=== PATIENT | female | born 1985 | race Caucasian/White ===

== ENCOUNTER → 2016-08-28 | Outpatient (CLI) | payer OTHER ==
[2016-08-28 12:06] LABS: BASO % 0.6 %; BASO ABS # 0.05 K/uL (0-0.2); COMPLETE YES; EOS % 2.4 %; HEMATOCRIT 35.6 % (37-47); IG% 0.1 %; LYMPH % 27.3 %; LYMPH ABS # 2.19 K/uL (1.2-3.4); MEAN CELL VOLUME 90.1 fL (80-100); MEAN CORPUSCULAR HEMOGLOBIN 31.4 pg (25-34); MEAN CORPUSCULAR HGB CONC 34.8 g/dl (32-36); MEAN PLATELET VOLUME 9.8 fL (7.4-10.4); MONO % 6.2 %; NEUT % 63.4 %; PLATELET COUNT 279 K/uL (130-400); RED BLOOD COUNT 3.95 M/uL (4.2-5.4); WHITE BLOOD COUNT 8.03 K/uL (4.8-10.8)
[2016-08-31 01:04] LABS: CHLAMYDIA TRACH RNA*** NOT DETECTED (NOT DETECTED); GC (NEIS GONORRHOEAE)RNA** NOT DETECTED (NOT DETECTED)
== END | disposition home or self-care (01) ==
LOC: C.LAB1850 10:28
PROVIDERS: ATTEND Obstetrics & Gynecology
DX: O09.299 Supervision of pregnancy with other poor reproductive or obstetric history, unspecified trimester (principal); Z3A.00 Weeks of gestation of pregnancy not specified

== ENCOUNTER 2016-09-23 19:49 | Emergency (ER) | payer OTHER ==
[~2016-09-23] VITALS: Ht 152.4 cm; Wt 55.1 kg
[2016-09-23 19:51] VITALS: Ht 152.4 cm; Wt 55.1 kg
[2016-09-23 20:31] LABS: BASO % 0.4 %; BASO ABS # 0.03 K/uL (0-0.2); COMPLETE YES; EOS % 4.1 %; HEMATOCRIT 34.2 % (37-47); IG% 0.1 %; LYMPH % 28.8 %; MEAN CELL VOLUME 89.8 fL (80-100); MEAN CORPUSCULAR HEMOGLOBIN 32.5 pg (25-34); MEAN CORPUSCULAR HGB CONC 36.3 g/dl (32-36); MEAN PLATELET VOLUME 9.4 fL (7.4-10.4); MONO % 5.9 %; NEUT % 60.7 %; PLATELET COUNT 270 K/uL (130-400); RED BLOOD COUNT 3.81 M/uL (4.2-5.4); WHITE BLOOD COUNT 8.34 K/uL (4.8-10.8)
[2016-09-23 20:32] VITALS: O2SAT 99
[2016-09-23 20:41] LABS: INR 0.9 (0.9-1.1); PROTHROMBIN TIME (PATIENT) 9.4 SECONDS (9.0-12.0)
[2016-09-23 20:42] LABS: URINE APPEARANCE CLEAR (CLEAR); URINE BILIRUBIN NEG (NEG); URINE COLOR DK YELLOW; URINE NITRITE NEG (NEG); URINE PH 6.5 (4.5-7.5); URINE SPECIFIC GRAVITY 1.031 (1.000-1.030); UROBILINOGEN NEG (NEG)
[2016-09-23 20:48] LABS: BUN/CREATININE RATIO 11.6 (10-20); CALCIUM 8.5 mg/dl (8.5-10.1); CREATININE 0.58 mg/dl (0.60-1.20); POTASSIUM 3.6 mmol/L (3.5-5.1)
[2016-09-23 20:50] LABS: MANUAL MICROSCOPIC REQUIRED? NO; REVIEW REQ? NO
[2016-09-23 20:51] LABS: ALB/GLOB RATIO 0.9 (0.9-2)
[2016-09-23 20:52] LABS: PREG INTERNAL NEGATIVE QC NEG CLEAR BACKGROUND; PREG INTERNAL POSITIVE QC POS CONTROL LINE
--- NOTE | 2016-09-23 21:20 | DIAGNOSTIC IMAGING REPORT ---
Limited ultrasound LIMITED (US) CLINICAL HISTORY: 12 wks vag bleeding bleeding TECHNIQUE: Ultrasound COMPARISON STUDY: None FINDINGS: Single, viable intrauterine . Estimated gestational age is 12 weeks. heart rate is 1 59 bpm. Maternal cervix is closed. Normal vascular flow to the ovaries is seen in the right. Left ovary is not well seen possibly due to overlying bowel content. IMPRESSION: Single, viable intrauterine estimated at 12 weeks gestational age Electronically signed by: Brody Billy M.D. 09/23/2016 9:18 PM Dictated Date/Time: 09/23/2016 9:17 PM
[2016-09-23 21:50] VITALS: BP 126/80; PULSE 80; TEMP 36.9; O2SAT 100
--- NOTE | 2016-09-23 22:30 | EMERGENCY ROOM VISIT NOTE ---
History Report prepared by Sergeiibjeffry: Ken Le Under the Supervision of: Praneeth McnealO. First contact with patient: 19:54 Chief Complaint: ED VAG BLEEDING Stated Complaint: 12 WEEKS , BLOODY DISCHARGE History of Present Illness The patient is a 31 year old female who presents to the Emergency Room with complaints of constant vaginal bleeding beginning today. She is 11 weeks . She states that she noticed some "pink discharge" today from her vagina. The patient notes that she miscarried about a year ago. She has not had any successful births. She also complains of constipation and fatigue. She notes that the had an IUI last year and that her and her underwent some fertility treatments. She states that the current occurred without fertility treatments after her had two varicoceles removed. The patient denies any recent trauma. She denies any recent sexual intercourse. No abdominal pain. Pt denies headache, change in vision, fevers, chest pain, shortness of breath, nausea, vomiting, diarrhea, pain with urination, and melena. The patient had a vaginal ultrasound at 7 and 8 weeks which appeared normal. Source of History: patient Onset: Today Position: other (vagina) Quality: other (bleeding) Timing: constant Associated Symptoms: + fatigue, No SOB, No abdominal pain, No chest pain, No chills, No diarrhea, No fevers, No nausea, No urinary symptoms, No vomiting Note: The patient also complains of constipation. Review of Systems See HPI for pertinent positives & negatives. A total of 10 systems reviewed and were otherwise negative. Past Medical & Surgical Medical Problems: (1) No Known Active Medical Problems Family History No pertinent family history stated. Social History Smoking Status: Never Smoker Marital Status: Housing Status: lives with significant other Allergies Uncoded Allergies: N (Allergy, Unknown, 06/19/02) NKA (Allergy, Unknown, 06/19/02) NKDA (Allergy, Unknown, 06/19/02) Physical Exam Vital Signs Date Time Temp Pulse Resp B/P Pulse Ox O2 Delivery O2 Flow Rate FiO2 09/23/16 21:50 36.9 80 18 126/80 100 09/23/16 21:35 80 18 126/80 100 Room Air 09/23/16 20:32 99 Room Air 09/23/16 19:51 36.9 81 18 148/94 99 Room Air Physical Exam GENERAL: Sitting up in bed, tearful, alert, well appearing, well nourished, no distress, non-toxic EYE EXAM: normal conjunctiva OROPHARYNX: no exudate, no erythema, lips, buccal mucosa, and tongue normal and mucous membranes are moist NECK: supple, no nuchal rigidity, no adenopathy, non-tender LUNGS: Clear to auscultation. Normal chest wall mechanics HEART: no murmurs, S1 normal and S2 normal ABDOMEN: abdomen soft, non-tender, normo-active bowel sounds, no masses, no rebound or guarding. BACK: Back is symmetrical on inspection and there is no deformity, no midline tenderness, no CVA tenderness. SKIN: no rashes and no bruising. Tattoos present. UPPER EXTREMITIES: upper extremities are grossly normal. LOWER EXTREMITIES: No pitting edema. NEURO EXAM: Normal sensorium, cranial nerves II-XII grossly intact, normal speech, no gross weakness of arms, no gross weakness of legs. Medical Decision & Procedures ER Provider Diagnostic Interpretation: Radiology results as stated below per my review and the radiologist's interpretation: ' Limited ultrasound LIMITED (US) FINDINGS: Single, viable intrauterine . Estimated gestational age is 12 weeks. heart rate is 1 59 bpm. Maternal cervix is closed. Normal vascular flow to the ovaries is seen in the right. Left ovary is not well seen possibly due to overlying bowel content. IMPRESSION: Single, viable intrauterine estimated at 12 weeks gestational age Electronically signed by: Brody Billy M.D. Laboratory Results 09/23/16 20:20 Red Blood Count 3.81, Mean Corpuscular Volume 89.8, Mean Corpuscular Hemoglobin 32.5, Mean Corpuscular Hemoglobin Concent 36.3, Mean Platelet Volume 9.4, Neutrophils (%) (Auto) 60.7, Lymphocytes (%) (Auto) 28.8, Monocytes (%) (Auto) 5.9, Eosinophils (%) (Auto) 4.1, Basophils (%) (Auto) 0.4, Neutrophils # (Auto) 5.07, Lymphocytes # (Auto) 2.40, Monocytes # (Auto) 0.49, Eosinophils # (Auto) 0.34, Basophils # (Auto) 0.03 09/23/16 20:20 Test 09/23/16 20:20 White Blood Count 8.34 K/uL (4.8-10.8) Red Blood Count 3.81 M/uL (4.2-5.4) Hemoglobin 12.4 g/dL (12.0-16.0) Hematocrit 34.2 % (37-47) Mean Corpuscular Volume 89.8 fL (80-100) Mean Corpuscular Hemoglobin 32.5 pg (25-34) Mean Corpuscular Hemoglobin Concent 36.3 g/dl (32-36) Platelet Count 270 K/uL (130-400) Mean Platelet Volume 9.4 fL (7.4-10.4) Neutrophils (%) (Auto) 60.7 % Lymphocytes (%) (Auto) 28.8 % Monocytes (%) (Auto) 5.9 % Eosinophils (%) (Auto) 4.1 % Basophils (%) (Auto) 0.4 % Neutrophils # (Auto) 5.07 K/uL (1.4-6.5) Lymphocytes # (Auto) 2.40 K/uL (1.2-3.4) Monocytes # (Auto) 0.49 K/uL (0.11-0.59) Eosinophils # (Auto) 0.34 K/uL (0-0.5) Basophils # (Auto) 0.03 K/uL (0-0.2) RDW Standard Deviation 40.7 fL (36.4-46.3) RDW Coefficient of Variation 12.6 % (11.5-14.5) Immature Granulocyte % (Auto) 0.1 % Immature Granulocyte # (Auto) 0.01 K/uL (0.00-0.02) Prothrombin Time 9.4 SECONDS (9.0-12.0) Prothromb Time International Ratio 0.9 (0.9-1.1) Activated Partial Thromboplast Time 25.2 SECONDS (21.0-31.0) Partial Thromboplastin Ratio 1.0 Urine Color DK YELLOW Urine Appearance CLEAR (CLEAR) Urine pH 6.5 (4.5-7.5) Urine Specific Eva 1.031 (1.000-1.030) Urine Protein NEG (NEG) Urine Glucose (UA) NEG (NEG) Urine Ketones TRACE (NEG) Urine Occult Blood NEG (NEG) Urine Nitrite NEG (NEG) Urine Bilirubin NEG (NEG) Urine Urobilinogen NEG (NEG) Urine Leukocyte Esterase NEG (NEG) Urine Test POS (NEG) Anion Gap 8.0 mmol/L (3-11) Est Creatinine Clear Calc Drug Dose 111.5 ml/min Estimated GFR () 144.4 Estimated GFR (Non- 124.6 BUN/Creatinine Ratio 11.6 (10-20) Calcium Level 8.5 mg/dl (8.5-10.1) Total Bilirubin 0.2 mg/dl (0.2-1) Aspartate Amino Transf (AST/SGOT) 7 U/L (15-37) Alanine Aminotransferase (ALT/SGPT) 15 U/L (12-78) Alkaline Phosphatase 59 U/L (45-117) Total Protein 7.2 gm/dl (6.4-8.2) Albumin 3.5 gm/dl (3.4-5.0) Globulin 3.7 gm/dl (2.5-4.0) Albumin/Globulin Ratio 0.9 (0.9-2) Human Chorionic Gonadotropin, Qual POS (NEG) Human Chorionic Gonadotropin, Quant 15878 mIU/mL Laboratory results per my review. ED Course ED COURSE: Vital signs were reviewed and appeared normal The patients medical record was reviewed The above diagnostic studies were performed and reviewed. ED treatments and interventions as stated above. 2005: The patient was evaluated in room B10. A complete history and physical examination was performed. 2014: Bedside ultrasound shows an IUP moving all extremities. Difficult to determine a heart rate. 2131: Upon reevaluation, the patient is resting comfortably. I discussed my findings with the patient and she understands and agrees with the treatment plan. Based on the patients age, coexisting illnesses, exam and lab findings the decision to treat as an outpatient was made. The patient remained stable while under my care. The patient appeared well at the time of discharge. Medical Decision Differential diagnosis includes etiologies such as ectopic , dysfunction uterine bleeding, bleeding dyscrasia, trauma, infection, as well as others were entertained. Patient is a 31-year-old female who presents the ER for a slight red tinge within her vaginal discharge. There is no active bleeding. She is no abdominal pain. Hemoglobin stable at 12. CBC along with BMP, LFTs, bilirubin is unremarkable. HCG is 83,000. UA was negative. INR is normal. Bedside ultrasound shows IUP with large amount of movement. Formal ultrasound shows IUP with heart rate of 150s. Patient was discharged to follow-up with [facility] who sent her in. Blood type was O+ and rhogam was given. Discussed with Pt concerning signs and symptoms to watch out for. Pt was instructed to follow up with their PCP and discussed with the patient their option to return to the ED at anytime for persistent or worsening symptoms. The appropriate anticipatory guidance and out-patient management, including indications for return to the emergency department, were explained at length to the patient and understood. Impression Primary Impression: Intrauterine Scribe Attestation The scribe's documentation has been prepared under my direction and personally reviewed by me in its entirety. I confirm that the note above accurately reflects all work, treatment, procedures, and medical decision making performed by me. Departure Information Dispostion Home / Self-Care Referrals Noelle Roman MD (PCP) Forms HOME CARE DOCUMENTATION FORM, IMPORTANT VISIT INFORMATION, WORK / SCHOOL INSTRUCTIONS Patient Instructions Bleeding Early Preg, My [facility] Additional Instructions Please follow up with your primary care doctor with in the next 24 hours and obstetrics within the next 48 hours. Any worsening of your symptoms, please return to the ED immediately. This includes worsening bleeding, passing out, abdominal pain, passing clots, passing tissue, or any other concerning signs or symptoms from your standpoint. Ultrasound shows a normal intrauterine with a heart rate in the 150s.
== END 2016-09-23 21:51 | disposition home or self-care (01) ==
LOC: C.EDB 19:50
DX: Z34.00 Encounter for supervision of normal first pregnancy, unspecified trimester (principal); Z3A.11 11 weeks gestation of pregnancy

== ENCOUNTER → 2016-09-25 | Outpatient (CLI) | payer OTHER ==
[~2016-09-25] MED LIST: EYED; PREN1TAB29
[2016-09-25 12:14] LABS: URINE APPEARANCE CLEAR (CLEAR); URINE BILIRUBIN NEG (NEG); URINE COLOR DK YELLOW; URINE NITRITE NEG (NEG); URINE SPECIFIC GRAVITY 1.027 (1.000-1.030); UROBILINOGEN NEG (NEG)
[2016-09-25 12:37] LABS: MANUAL MICROSCOPIC REQUIRED? NO; REVIEW REQ? NO
== END | disposition home or self-care (01) ==
LOC: C.LABSPEC 11:30
PROVIDERS: ATTEND Obstetrics & Gynecology
DX: O09.299 Supervision of pregnancy with other poor reproductive or obstetric history, unspecified trimester (principal); Z3A.00 Weeks of gestation of pregnancy not specified

== ENCOUNTER → 2016-10-23 | Outpatient (CLI) | payer OTHER ==
[2016-10-23 15:05] LABS: GTGD 50 Grams
== END | disposition home or self-care (01) ==
LOC: C.LAB1850 10:02
PROVIDERS: ATTEND Obstetrics & Gynecology
DX: Z34.01 Encounter for supervision of normal first pregnancy, first trimester (principal)

== ENCOUNTER → 2017-01-18 | Outpatient (CLI) | payer OTHER ==
[2017-01-18 10:49] LABS: GTGD 50 Grams
== END | disposition home or self-care (01) ==
LOC: C.LAB1850 09:04
PROVIDERS: ATTEND Obstetrics & Gynecology
DX: Z34.02 Encounter for supervision of normal first pregnancy, second trimester (principal); Z3A.00 Weeks of gestation of pregnancy not specified

== ENCOUNTER → 2017-01-18 | Outpatient (CLI) | payer OTHER ==
[2017-01-18 11:59] LABS: URINE APPEARANCE CLEAR (CLEAR); URINE BILIRUBIN NEG (NEG); URINE COLOR DK YELLOW; URINE EPITHELIAL CELL AUTO >30 /lpf (0-5); URINE NITRITE NEG (NEG); URINE SPECIFIC GRAVITY 1.024 (1.000-1.030); UROBILINOGEN NEG (NEG)
[2017-01-18 12:18] LABS: MANUAL MICROSCOPIC REQUIRED? NO; REVIEW REQ? NO
== END | disposition home or self-care (01) ==
LOC: C.LABSPEC 11:01
PROVIDERS: ATTEND Obstetrics & Gynecology
DX: Z34.02 Encounter for supervision of normal first pregnancy, second trimester (principal); Z3A.00 Weeks of gestation of pregnancy not specified

== ENCOUNTER 2017-04-13 13:59 | Inpatient (IN) | payer OTHER ==
[~2017-04-13] VITALS: Ht 152.4 cm; Wt 72.7 kg
[2017-04-13 15:02] LABS: HEMATOCRIT 34.5 % (37-47); MEAN CELL VOLUME 95.3 fL (80-100); MEAN CORPUSCULAR HEMOGLOBIN 33.4 pg (25-34); MEAN CORPUSCULAR HGB CONC 35.1 g/dl (32-36); MEAN PLATELET VOLUME 10.5 fL (7.4-10.4); PLATELET COUNT 223 K/uL (130-400); RED BLOOD COUNT 3.62 M/uL (4.2-5.4); WHITE BLOOD COUNT 13.16 K/uL (4.8-10.8)
[2017-04-13] MEDS ORDERED: PREN1TAB29 (15:10)
[2017-04-13] MEDS ORDERED: EYED (15:10)
[2017-04-13 15:12] VITALS: Ht 152.4 cm; Wt 72.7 kg
[2017-04-13] MEDS ORDERED: FENTANYL 2MCG/ML ROPIV 1.25MG/ML 100ML BAG EPI ONE (17:07)
[2017-04-13] MEDS ORDERED: EpHEDrine SULFATE INJ 50 MG/ML AMP ONE (17:07)
[2017-04-13] MEDS ORDERED: BUPIVACAINE 0.25% 30 ML VIAL ONE (17:07)
[2017-04-13] MEDS ORDERED: FENTANYL CITRATE INJ 50 MCG/1 ML 2 ML VIAL ONE (17:07)
[2017-04-13] MEDS: LACTATED RINGER'S 1000ML 1,000 ML IV PRN (17:16)
[2017-04-13] MEDS: LACTATED RINGER'S 1000ML 1,000 ML IV SCH ×2 (17:16→20:24)
[2017-04-13] MEDS ORDERED: NALOXONE HCL INJ 1 MG in SODIUM CHLORIDE 0.9% 1000ML 1,000 ML IV PRN (20:06)
[2017-04-13] MEDS ORDERED: LACTATED RINGER'S 1000ML 500 ML IV PRN (20:06)
[2017-04-13] MEDS ORDERED: ONDANSETRON INJ 2 MG/ML 2 ML VIAL IV PRN (20:15)
[2017-04-13] MEDS ORDERED: EpHEDrine SULFATE INJ 50 MG/ML AMP IV PRN (20:15)
[2017-04-13] MEDS ORDERED: PROMETHAZINE HCL INJ 6.25 MG in SODIUM CHLORIDE 0.9% 50ML 50 ML IV PRN (20:15)
[2017-04-13] MEDS ORDERED: DiphenhydrAMINE HCL 50 MG/ML VIAL IV PRN (20:15)
[2017-04-13] MEDS ORDERED: NALBUPHINE HCL INJ 10 MG/ML AMP IV PRN (20:15)
[2017-04-13] MEDS ORDERED: NALOXONE HCL INJ 0.4 MG/1 ML VIAL/CARP IV PRN (20:15)
[2017-04-13] MEDS ORDERED: OXYTOCIN 30 UNITS/500ML NSS IV ONE (21:56)
[2017-04-13] MEDS: FENTANYL 2MCG/ML ROPIV 1.25MG/ML 100ML BAG EPI PRN (22:56)
[2017-04-13] MEDS ORDERED: ACETAMINOPHEN 500 MG TAB PO ONE ×2 (23:30→23:45)
[2017-04-13] MEDS ORDERED: NURSING VERBAL MED ORDER ONE (23:30)
[2017-04-14] VITALS (9 sets, daily range): BP systolic 117; BP diastolic 72; PULSE 92; TEMP 36.4; O2SAT 91–97
[2017-04-14] MEDS: FENTANYL 2MCG/ML ROPIV 1.25MG/ML 100ML BAG EPI PRN ×3 (01:32→08:29)
[2017-04-14] MEDS ORDERED: LACTATED RINGER'S 1000ML 500 ML IV PRN ×2 (04:10→10:44)
[2017-04-14] MEDS ORDERED: OXYTOCIN 30 UNITS/500ML NSS IV PRN (04:15)
[2017-04-14] MEDS: LACTATED RINGER'S 1000ML 1,000 ML IV SCH (05:14)
[2017-04-14] MEDS ORDERED: CEFAZOLIN IV 2,000 MG in SYRINGE 0 ML IV SCH (08:00)
[2017-04-14] MEDS ORDERED: CEFAZOLIN IV 2,000 MG in DEXTROSE 5% 50ML 50 ML IV SCH (08:00)
[2017-04-14] MEDS ORDERED: CITRIC ACID/SODIUM CITRATE 15 ML UDC ONE (09:07)
[2017-04-14] MEDS: LACTATED RINGER'S 1000ML 1,000 ML IV PRN (09:12)
[2017-04-14] MEDS ORDERED: LACTATED RINGER'S 1000ML 1,000 ML IV SCH ×2 (09:45→10:30)
[2017-04-14] MEDS ORDERED: CITRIC ACID/SODIUM CITRATE 15 ML UDC PO ONE (09:45)
--- NOTE | 2017-04-14 09:55 | HISTORY & PHYSICAL EXAMINATION ---
DATE OF ADMISSION: 04/13/2017 HISTORY OF PRESENT ILLNESS: Dorita presented in labor for Dr. Garcia and I inherited call at 8:30 a.m. At that time, the patient had been fully dilated for approximately 6 hours and had been pushing for some portion of that. heart rate tracing had been tachycardic for some significant period of time as well and was in the 180s. The heart rate did show some episodes of good variability, but again, heart rate tachycardia of 180 at this stage. Since I was just coming on for the shift, I reviewed with the patient her situation in full, summarized to progress in labor and the patient stated she was also exhausted. I felt the exam there was some significant caput of the baby's head. However, I felt that the bony presenting part was at +2 cm. I offered the patient two choices; one was vacuum assistance now or a section. I discussed the vacuum assistance had risks and benefits as did the . HISTORY: This is her first to term. She has had 1 prior miscarriage. She had a echo as well with no apparent defect; however, an echo was recommended . Her due date was April 09, she is 40 weeks and 5 days today. Her group B strep is negative. PAST MEDICAL HISTORY: Reviewing medical history, she is healthy. She had a LEEP in the past procedure. PAST SURGICAL HISTORY: LEEP. MEDICATIONS: . FAMILY HISTORY: Negative. REVIEW OF SYSTEMS: Negative. PHYSICAL EXAMINATION: VITAL SIGNS: Stable. Her temperature is just above 100 degrees at its highest point, but currently is normal. CHEST: Clear. CARDIOVASCULAR: Normal rate and rhythm. No audible murmur. heart rate described as 180. CERVIX: Exam 2 cm. ASSESSMENT: I offered the patient vacuum as it would be a low vacuum and the patient agreed. I did discuss the option of as well and I did feel there was some concern the baby would not come with vacuum.
[2017-04-14] MEDS ORDERED: LIDOCAINE/EPINEPHRINE 2% 1:200,000 20 ML SDV ONE (10:01)
[2017-04-14] MEDS ORDERED: OXYTOCIN INJ 10 UNITS/ML VIAL ONE (10:01)
[2017-04-14] MEDS ORDERED: MORPHINE SULFATE 1MG/1ML 30ML VIAL IV ONE (10:07)
[2017-04-14] MEDS ORDERED: ONDANSETRON INJ 2 MG/ML 2 ML VIAL ONE (10:09)
[2017-04-14] MEDS ORDERED: LANOLIN OINT EXT PRN ×4 (10:30)
[2017-04-14] MEDS ORDERED: PROMETHAZINE HCL INJ 25 MG in SODIUM CHLORIDE 0.9% 50ML 50 ML IV PRN ×2 (10:30)
[2017-04-14] MEDS ORDERED: KETOROLAC TROMETHAMINE 30 MG/ML VIAL IV. PRN ×2 (10:30)
[2017-04-14] MEDS ORDERED: ZOLPIDEM TARTRATE 5 MG TAB PO PRN ×2 (10:30)
[2017-04-14] MEDS ORDERED: DiphenhydrAMINE HCL 50 MG/ML VIAL IV PRN ×3 (10:30→10:45)
[2017-04-14] MEDS ORDERED: MAGNESIUM HYDROXIDE SUSP 30 ML UDC PO PRN ×2 (10:30)
[2017-04-14] MEDS ORDERED: OXYCODONE/ACETAMINOPHEN 5-325 TAB PO PRN ×3 (10:30)
[2017-04-14] MEDS ORDERED: SUPERCREAM 0.870 % 15GM JAR EXT PRN ×2 (10:30)
[2017-04-14] MEDS ORDERED: HYDROCORTISONE ACETATE 25 MG SUPP PR PRN (10:30)
[2017-04-14] MEDS ORDERED: MEPERIDINE HCL 50 MG/ML CARP IV PRN ×4 (10:30)
[2017-04-14] MEDS ORDERED: SENNA 8.6 MG TAB PO PRN ×2 (10:30)
[2017-04-14] MEDS ORDERED: IBUPROFEN 600 MG TAB PO PRN (10:30)
[2017-04-14] MEDS ORDERED: BENZOCAINE 20% AER SPR 82.5 GM CAN EXT PRN ×2 (10:30)
[2017-04-14] MEDS ORDERED: ONDANSETRON INJ 2 MG/ML 2 ML VIAL IV PRN ×3 (10:30→10:45)
--- NOTE | 2017-04-14 10:33 | [facility] Operative Report ---
Operative Report Operative Date Apr 14, 2017. Pre-Operative Diagnosis Tachycardia. Prolonged second stage of labor. Failed trial of vacuum. Maternal exhaustion. Post-Operative Diagnosis same Procedure(s) Performed Caesarean section Surgeon Dr. Jada Pritchett Metal Milling Machine Operator Surgeon(s) Dr. Ladan Zhang Estimated Blood Loss 600 Findings OP position of fetus Specimens A- placenta- exam B- cord blood C- arterial and venous cord gasses Drains Cabrales Anesthesia Epidural Complication(s) None Disposition L&D I attest to the content of the Intraoperative Record and any orders documented therein. Any exceptions are noted below.
[2017-04-14] MEDS ORDERED: SODIUM CHLORIDE 0.9% 1000ML 1,000 ML IV PRN (10:44)
[2017-04-14] MEDS ORDERED: NALOXONE HCL INJ 0.08 MG in SYRINGE 1.8 ML IV PRN (10:44)
[2017-04-14] MEDS ORDERED: NALOXONE HCL INJ 1 MG in SODIUM CHLORIDE 0.9% 1000ML 1,000 ML IV PRN (10:44)
[2017-04-14] MEDS ORDERED: MoRPHine SULFATE 2 MG/ML CARP IV PRN (10:45)
[2017-04-14] MEDS ORDERED: DC INTRASPINAL MORPHINE SCH (10:45)
[2017-04-14] MEDS ORDERED: NALOXONE HCL 0.4 MG/1 ML VIAL/CARP IV PRN (10:45)
[2017-04-14] MEDS ORDERED: MoRPHine SULFATE PF 1 MG/ML 10 ML AMP/VIAL EPI PRN (10:45)
[2017-04-14] MEDS ORDERED: NO NARCOTICS OR SEDATIVES SCH (10:45)
[2017-04-14] MEDS ORDERED: EpHEDrine SULFATE INJ 50 MG/ML AMP IV PRN (10:45)
--- NOTE | 2017-04-14 10:46 | Anesthesiology Progress Note ---
Anesthesia Post Op Note Date & Time Apr 14, 2017 at 10:46 Vital Signs Pain Intensity: 0.0 Notes Mental Status: alert / awake / arousable, participated in evaluation Pt Amnestic to Procedure: Yes Nausea / Vomiting: adequately controlled Pain: adequately controlled Airway Patency, RR, SpO2: stable & adequate BP & HR: stable & adequate Hydration State: stable & adequate Neuraxial Anesthesia: was administered, sensory block is resolving Anesthetic Complications: no major complications apparent
--- NOTE | 2017-04-14 10:46 | Anesthesia Procedure Note ---
Anesthesia Epidural Removal Nt Date & Time Apr 14, 2017 at 10:45 Vital Signs Pain Intensity: 0.0 Notes Mental Status: alert / awake / arousable, participated in evaluation Nausea / Vomiting: adequately controlled Pain: adequately controlled Airway Patency, RR, SpO2: stable & adequate BP & HR: stable & adequate Hydration State: stable & adequate Neuraxial Anesthesia: was administered, sensory block is resolving Anesthetic Complications: no major complications apparent, pt satisfied with anesthetic care Epidural: removed without complications, with tip intact
--- NOTE | 2017-04-14 11:08 | OPERATIVE REPORT ---
DATE OF OPERATION: 04/14/2017 PREOPERATIVE DIAGNOSIS: tachycardia, prolonged second stage of labor, failed trial of vacuum and maternal exhaustion. POSTOPERATIVE DIAGNOSIS: Same. PROCEDURE: Low segment transverse section. SURGEON: Dr. rPitchett. LINER WORKER: Dr. Garcia. ESTIMATED BLOOD LOSS: 600 mL. FINDINGS: OP position of fetus. SPECIMENS: Placenta exam, cord blood and arterial and venous cord gases. DRAINS: Cabrales catheter. ANESTHETIC: Epidural. COMPLICATIONS: None. DISPOSITION: L&D. Dorita had her epidural anesthetic increased. Of note, she did have a trial of vacuum. This was only 2 pulls and there was no movement of the fetus. Another operative note has been dictated. Cabrales catheter had been placed in her bladder and was draining reasonably slightly brownish color urine, leftward tilt. After a time motion analyst out and Ancef within 1 hour of procedure, 2 grams skin was tested with pickups with teeth and found to be adequate for incision. DESCRIPTION OF PROCEDURE: A low transverse incision made with scalpel, dissecting down through subcutaneous fat through the fascia in the midline, splitting the rectus muscles and then entering the peritoneal cavity in a superior location to avoid injuring the bladder. Once in the peritoneal cavity opening enlarged to allow exposure. Bladder retractor placed. The Metzenbaums were used to dissect away the bladder flap further from the low segment and then an incision was made with scalpel. Uterus was fairly thin. I was able to enter after incising the uterus with scalpel, entered bluntly with the coding machine operator's finger and then enlarged the incision with the coding machine operator's finger in the usual fashion. Baby was in direct occiput posterior position and was able to flex the head and elevate the head out of the pelvis and then pressure from the respiratory care assistant allowed delivery of the head. Fluid was clear. No nuchal cord. Mouth suctioned. Baby was delivered by gentle traction. No excessive force used. Live vigorous female . There was some terminal meconium but this was only at the delivery portion of the baby through the incision. Baby was handed to Dr. Ruiz after cord was clamped and cut. Cord gases obtained. Cord blood obtained. IV Pitocin was then started. The placenta was then manually removed. Uterus was exteriorized. Uterus tone increased. I ensured with a moist lap all placenta was removed. On careful examination of the uterus I discovered there were no extensions of the incision. The uterus was then closed in the usual fashion using 0 Vicryl as first locking layer and a second reinforcing 0 Vicryl layer. At this stage, hemostasis was excellent. After generous irrigation and suction of the cul-de-sac region, uterus was placed back in the peritoneal cavity. Bladder flap was also examined and irrigated and suctioned and was hemostatic. The retractors were removed. At this stage fascia was closed with 0 Vicryl, subcutaneous fat irrigated and closed with 3-0 Vicryl and skin closed with 4-0 subcuticular Monocryl. Incision Steri-Strips. Sponge and instrument counts correct. Urine was the same color at the end of the procedure. I attest to the content of the Intraoperative Record and any orders documented therein. Any exception s are noted below.
[2017-04-14] MEDS: KETOROLAC TROMETHAMINE 30 MG/ML VIAL IV. PRN ×2 (11:43→19:52)
[2017-04-14] MEDS ORDERED: SIMETHICONE 80 MG CHEW PO SCH (13:00)
[2017-04-14] MEDS: OXYTOCIN INJ 20 UNITS in LACTATED RINGER'S 1000ML 1,000 ML IV SCH ×2 (15:29→23:22)
[2017-04-14] MEDS: SIMETHICONE 80 MG CHEW PO SCH ×2 (16:33→19:53)
[2017-04-14] MEDS: NALBUPHINE HCL INJ 10 MG/ML AMP IV PRN (18:03)
[2017-04-14] MEDS: DOCUSATE SODIUM 100 MG CAP PO SCH (19:53)
[2017-04-14] MEDS ORDERED: DOCUSATE SODIUM 100 MG CAP PO SCH (20:00)
[2017-04-15] VITALS (10 sets, daily range): BP systolic 114–130; BP diastolic 73–82; PULSE 86–96; TEMP 36.3–36.7; O2SAT 90–99
[2017-04-15] MEDS: KETOROLAC TROMETHAMINE 30 MG/ML VIAL IV. PRN (02:18)
[2017-04-15] MEDS: NALBUPHINE HCL INJ 10 MG/ML AMP IV PRN (03:21)
[2017-04-15 07:14] LABS: BASO % 0.2 %; BASO ABS # 0.03 K/uL (0-0.2); COMPLETE YES; EOS % 1.1 %; HEMATOCRIT 29.4 % (37-47); IG% 0.3 %; LYMPH % 8.4 %; LYMPH ABS # 1.37 K/uL (1.2-3.4); MEAN CELL VOLUME 95.8 fL (80-100); MEAN CORPUSCULAR HEMOGLOBIN 32.2 pg (25-34); MEAN CORPUSCULAR HGB CONC 33.7 g/dl (32-36); MEAN PLATELET VOLUME 9.9 fL (7.4-10.4); MONO % 3.8 %; NEUT % 86.2 %; PLATELET COUNT 174 K/uL (130-400); RED BLOOD COUNT 3.07 M/uL (4.2-5.4); WHITE BLOOD COUNT 16.22 K/uL (4.8-10.8)
[2017-04-15] MEDS: OXYCODONE/ACETAMINOPHEN 5-325 TAB PO PRN ×3 (07:32→17:23)
[2017-04-15] MEDS: SIMETHICONE 80 MG CHEW PO SCH ×4 (07:33→20:29)
[2017-04-15] MEDS: IBUPROFEN 600 MG TAB PO PRN ×3 (07:34→17:23)
[2017-04-15] MEDS: PRENATAL VITAMIN TAB PO SCH (07:34)
[2017-04-15] MEDS: DOCUSATE SODIUM 100 MG CAP PO SCH ×2 (07:34→20:29)
[2017-04-15] MEDS ORDERED: PRENATAL VITAMIN TAB PO SCH (08:00)
--- NOTE | 2017-04-15 08:57 | Progress Note ---
Subjective Apr 15, 2017. Subjective conversation w/ patient, physical exam, lab review Ambulation: ambulating normally Lochia: Moderate Feeding Type: Breast Feeding Objective Vital Signs Date Time Temp Pulse Resp B/P (MAP) Pulse Ox O2 Delivery O2 Flow Rate FiO2 04/15/17 05:30 20 90 04/15/17 04:30 20 93 04/15/17 03:45 36.5 90 20 114/73 (87) 91 Room Air 04/15/17 03:30 20 90 04/15/17 02:30 20 91 04/15/17 01:30 22 90 04/15/17 00:30 22 93 04/15/17 00:30 93 Room Air 04/14/17 23:30 20 91 04/14/17 22:30 16 95 04/14/17 21:35 18 96 04/14/17 20:40 16 96 04/14/17 19:50 14 94 04/14/17 18:40 14 94 04/14/17 17:45 18 94 04/14/17 16:40 16 95 04/14/17 15:40 20 97 04/14/17 15:40 97 Room Air 04/14/17 15:40 36.4 92 20 117/72 (87) 97 Room Air 04/14/17 15:40 94 Room Air Physical Exam General Appearance: WELL-APPEARING Respiratory/Chest: lungs clear Abdomen: non tender Fundus: Firm Incision Description: Clean, Dry & Intact Extremities: no calf tenderness Laboratory Results Last 24 Hours Test 04/15/17 06:56 White Blood Count 16.22 K/uL Red Blood Count 3.07 M/uL Hemoglobin 9.9 g/dL Hematocrit 29.4 % Mean Corpuscular Volume 95.8 fL Mean Corpuscular Hemoglobin 32.2 pg Mean Corpuscular Hemoglobin Concent 33.7 g/dl Platelet Count 174 K/uL Mean Platelet Volume 9.9 fL Neutrophils (%) (Auto) 86.2 % Lymphocytes (%) (Auto) 8.4 % Monocytes (%) (Auto) 3.8 % Eosinophils (%) (Auto) 1.1 % Basophils (%) (Auto) 0.2 % Neutrophils # (Auto) 13.97 K/uL Lymphocytes # (Auto) 1.37 K/uL Monocytes # (Auto) 0.62 K/uL Eosinophils # (Auto) 0.18 K/uL Basophils # (Auto) 0.03 K/uL RDW Standard Deviation 48.2 fL RDW Coefficient of Variation 13.9 % Immature Granulocyte % (Auto) 0.3 % Immature Granulocyte # (Auto) 0.05 K/uL Assessment and Plan Problem List Medical Problems: (1) Intrauterine Status: Acute Post-Op Day#: 1 Continue Routine Care: Discussed Fe when goes home
[2017-04-15] MEDS ORDERED: BISACODYL 5 MG TABEC PO ONE (22:00)
[2017-04-15] MEDS: BISACODYL 5 MG TABEC PO ONE ×2 (22:16→22:22)
[2017-04-16] MEDS: OXYCODONE/ACETAMINOPHEN 5-325 TAB PO PRN ×3 (01:29→16:12)
[2017-04-16] MEDS: IBUPROFEN 600 MG TAB PO PRN ×3 (01:30→16:10)
[2017-04-16 06:40] LABS: HEMATOCRIT 24.9 % (37-47)
--- NOTE | 2017-04-16 07:14 | Progress Note ---
Subjective Apr 16, 2017. Subjective conversation w/ patient, physical exam, chart review, lab review Ambulation: ambulating normally Voiding: no voiding problems Passing Gas: Yes Diet Tolerance: Regular Diet Lochia: Moderate Feeding Type: Breast Feeding Pain: controlled Review of Systems Abdomen: No nausea, No vomiting Female : No dysuria Objective Vital Signs Date Time Temp Pulse Resp B/P (MAP) Pulse Ox O2 Delivery O2 Flow Rate FiO2 04/15/17 23:30 36.7 86 20 130/82 (98) 99 Room Air 04/15/17 23:30 99 Room Air 04/15/17 16:00 99 Room Air 04/15/17 12:26 36.3 96 20 123/80 (94) Physical Exam General Appearance: WELL-APPEARING, WD/WN, NO APPARENT DISTRESS Respiratory/Chest: lungs clear, normal breath sounds, no respiratory distress Cardiovascular: regular rate, rhythm, no gallop Abdomen: normal bowel sounds, soft Fundus: Firm, Tender (appropriately tender), Relation to Umbilicus (1 below u) Incision Description: Clean, Dry & Intact Extremities: non-tender, normal inspection Laboratory Results Last 24 Hours Test 04/16/17 05:55 Hemoglobin 8.3 g/dL Hematocrit 24.9 % Assessment and Plan Post-Op Day#: 2 Continue Routine Care: 32 yof (now1) delivered by at 40-5 04/14 0957 O+/GBS-/RI Hgb 12.1, 9.9, today pending Pt doing well clinically, desires to stay another day Encourage ambulation, support, control pain with motrin/tyl/perc. Routine post care. ANDREIA COLBERT FMR PGY 1 Resident Physician Supervision Note: I interviewed and examined the patient. Discussed with Dr. Colbert and agree with findings and plan as documented in the note. Any exceptions or clarifications are listed here: [None] Documented By: Álvaro Pritchett Resident Tracking Resident Involvement: Resident Care Provided Care Provided: OB Delivery
--- NOTE | 2017-04-16 07:49 | OPERATIVE REPORT ---
DATE OF OPERATION: 04/14/2017 PREOPERATIVE DIAGNOSES: Six hours second stage, tachycardia and maternal exhaustion. POSTOPERATIVE DIAGNOSES: Same. PROCEDURE: Trial of vacuum. SURGEON: Dr. Pritchett. ANESTHETIC: Epidural. COMPLICATIONS: None. ESTIMATED BLOOD LOSS: None. DISPOSITION: Labor and delivery. I reviewed with Dorita, risks and benefits of vacuum. I discussed that vacuum would give us a chance of vaginal delivery and that the alternative was to do a . She preferred vacuum. Bladder was drained. There was really no urine obtained from the bladder using a red rubber catheter. Vacuum was applied to the head and over 2 contractions, we pulled. I had 1 pop off. I was able to make no progress with descent of the baby. With this in mind, I felt that the baby simply was not going to come with a prolonged second stage. Thus, I have recommended . Vacuum was removed. There was a small labial abrasion, which was repaired with a simple stitch of 3-0 Vicryl. Sponge and instrument counts were correct. I attest to the content of the Intraoperative Record and any orders documented therein. Any exception s are noted below.
[2017-04-16 08:00] VITALS: BP 124/82; PULSE 88; TEMP 36.6
[2017-04-16] MEDS: PRENATAL VITAMIN TAB PO SCH (08:21)
[2017-04-16] MEDS: SIMETHICONE 80 MG CHEW PO SCH ×4 (08:22→19:56)
[2017-04-16] MEDS: DOCUSATE SODIUM 100 MG CAP PO SCH ×2 (08:22→19:56)
[2017-04-16] MEDS ORDERED: BISACODYL 10 MG SUPP PR PRN (10:30)
[2017-04-16 15:50] VITALS: BP 133/79; PULSE 76; TEMP 36.7
[2017-04-17 00:45] VITALS: BP 130/81; PULSE 80; TEMP 36.5; O2SAT 99
[2017-04-17] MEDS: IBUPROFEN 600 MG TAB PO PRN ×2 (01:35→11:08)
[2017-04-17] MEDS: OXYCODONE/ACETAMINOPHEN 5-325 TAB PO PRN ×2 (01:36→11:08)
--- NOTE | 2017-04-17 06:30 | Progress Note ---
Subjective Apr 17, 2017. Subjective conversation w/ patient, physical exam, chart review, lab review Ambulation: ambulating normally Voiding: no voiding problems Passing Gas: Yes Diet Tolerance: Regular Diet Lochia: Moderate Feeding Type: Breast Feeding Pain: controlled Review of Systems Respiratory: No shortness of breath Female : No dysuria Objective Vital Signs Date Time Temp Pulse Resp B/P (MAP) Pulse Ox O2 Delivery O2 Flow Rate FiO2 04/17/17 00:45 36.5 80 18 130/81 (97) 99 Room Air 04/17/17 00:45 99 Room Air 04/16/17 15:50 36.7 76 20 133/79 (97) Room Air 04/16/17 15:50 Room Air 04/16/17 08:00 36.6 88 18 124/82 (96) Room Air 04/16/17 07:30 Room Air Physical Exam General Appearance: WELL-APPEARING, WD/WN, NO APPARENT DISTRESS Respiratory/Chest: lungs clear, normal breath sounds, no respiratory distress Cardiovascular: regular rate, rhythm, no gallop Abdomen: normal bowel sounds, soft Fundus: Firm, Non-Tender, Relation to Umbilicus (1 below U) Incision Description: Clean, Dry & Intact Extremities: non-tender, normal inspection Assessment and Plan Post-Op Day#: 3 Continue Routine Care: 32 yof (now1) delivered by at 40-5 04/14 0957 O+/GBS-/RI Hgb 12.1, 9.9, 8.3. Denies s/s anemia. Pt doing well clinically, desires to go home today. Counselled on dc instructions. Encourage ambulation, support, control pain with motrin/tyl/perc. Routine post care. ANDREIA WRIGHT FMR PGY 1 Resident Physician Supervision Note: I was present with Dr. Wright during the history and exam. I discussed the case with the resident and agree with the findings and plan as documented in the note. Any exceptions or clarifications are listed here: Doing well, ready for discharge. discussed pain meds and recovery. needs 6wk pp check. Checked on [place] PDMP and no issues identified. Documented By: Britt Florez Resident Tracking Resident Involvement: Resident Care Provided Care Provided: OB Delivery
--- NOTE | 2017-04-17 06:36 | Discharge Instructions ---
Discharge Instructions Date of Service Apr 17, 2017. Admission Reason for Admission: Normal Labor, Post Term Over 40 Weeks Discharge Discharge Diagnosis / Problem: DELIVERY Discharge Goals Goal(s): Routine recovery after Medications Continue Dispensed Medications: supercream, lansinoh Activity Recommendations Activity Limitations: per Instructions/Follow-up section . Instructions / Follow-Up Instructions / Follow-Up ACTIVITY RECOMMENDATIONS: * Gradual return to full activity over the next 2-3 weeks. * No lifting - nothing heavier than baby over the next 2-3 weeks. * Do not engage in vigorous exercise, sexual activity or sports until cleared by your physician. * Do not drive or operate any motorized equipment until cleared by your physician. * You may shower/bathe daily. MEDICATIONS: For discomfort or pain, you may use Acetaminophen (Tylenol), Ibuprofen (Advil), or Naproxen (Aleve) following the package directions. For constipation you may use Colace following the package directions. BREAST CARE: If you are not breast feeding: * Wear a supportive bra 24 hours a day for one to two weeks. * Avoid stimulating your breasts and nipples as much as possible during the first few weeks after delivery. * When taking a shower, have the warm water hit your back, not breasts. * When your breasts feel full, apply ice packs. Usually three to four times a day helps ease the discomfort. * Take a mild pain medication (Tylenol / Motrin) when you are uncomfortable. If breast feeding: * Use breast milk to lubricate nipples. Lansinoh cream may be used for sore nipples. You do not need to remove cream prior to breast feeding. If using a different brand of cream, check the label for directions regarding removal of cream prior to nursing. * Wear a supportive bra. * If having problems with breasts or breast feeding, call a regional engagement consultant or your health care provider. SPECIAL CARE INSTRUCTIONS: When you are discharged from the hospital, it is important for you to follow the instructions listed below: * During the first week at home, you should be able to care for yourself and your baby. In addition, the usual light household activities are encouraged. * Limit your activities to the way you feel. Do not try to clean the house or move furniture. Be sensible. * If you actively engage in sports and have done so up until the time of your delivery, you may resume these activities as soon as you feel able. This may take up to one month or even longer. Use good judgment. * Continue to take your vitamins for at least six weeks after the of your baby. * Your diet need not be limited unless you were on a special diet before your delivery. Breast-feeding mothers need around 2500 calories per day and at least 64-80 ounces of fluid per day (8 to 10 glasses). * You should eat foods from the four major food groups. Crash diets or fad diets are to be avoided. Eating lean meats, fresh fruits and vegetables, low-fat dairy products, high fiber foods and a regular exercise program, will help you get back to your pre- weight without putting your health at risk. * Constipation is sometimes a problem after delivery. Take a mild laxative as needed. If breast feeding, Milk of Magnesia is acceptable to use. You may use a suppository or Fleets enema. * A daily shower or tub bath is suggested. Wash incision daily with warm soapy water and pat dry. It doesn't need to be covered unless drainage is present. * A bloody vaginal discharge will usually continue until around four weeks . A small amount of bleeding may continue for as long as six weeks. Vaginal discharge changes from the bright red bleeding after delivery to pink then brownish and finally yellowish-pink before becoming white and disappearing. * Bleeding may increase with activity. Your first period may come in 4-8 weeks. If you are breast feeding, your period may be delayed even longer. * Alpha (sex) can begin whenever both you and your partner feel comfortable and do not have any form of genital infection. It is recommended that you wait at least six weeks for internal and external healing to occur. If you have questions, please talk to your health care practitioner. A condom should be used to prevent infection and . * Foreplay, gentle intercourse and lubrication is very important the first several times to prevent pain. A water-based lubricant such as K-Y jelly or Astroglide may be used. * If you have RH negative blood and your baby is RH positive, you will receive RHOGAM by injection prior to discharge. The nurse will give you a card to keep with you that has the date and place that you received RHOGAM after delivery. * During your care, you had a Rubella screen done to check for the presence of rubella antibodies in your blood. If your test was negative, you will receive a Rubella vaccine prior to discharge. This vaccine may cause a fever, soreness at the injection site and flu-like symptoms. If these symptoms persist, notify your health care practitioner. is not advised for one month after a Rubella vaccine. * Verbalizes understanding of car seat law as reviewed with patient nursing. * Car Seat hand-out given and reviewed with patient by nursing. * Shaken baby information reviewed with patient by nursing. Call you doctor if: * Heavy bleeding (saturating several pads an hour) or passing clots the size of your fist. * A fever >101 degrees F (38.3 degrees C) on two occasions four hours apart and /or chills. * Unusual pain in the pelvic or vaginal areas. * Call the doctor for any increased redness, drainage or swelling around the incision and any pain unrelieved by prescribed pain medication. * "Baby Blues" lasting longer than two weeks. If you have any questions or concerns, call your health care practitioner at . FOLLOW UP VISIT: * Please call the office at to schedule a 6 week examination. It is important you keep this appointment. It is important for you to make arrangements for either yearly or twice yearly check-ups thereafter. Current Hospital Diet Patient's current hospital diet: Regular OB Diet Discharge Diet Recommended Diet: Regular OB Diet Procedures Procedures Performed: Caesarean section Pending Studies Studies pending at discharge: no Medical Emergencies . Who to Call and When: Medical Emergencies: If at any time you feel your situation is an emergency, please call [phone] immediately. . Non-Emergent Contact Non-Emergency issues call your: Primary Care Provider . . "Provider Documentation" section prepared by Angélica Wright. . VTE Core Measure Inpt VTE Proph given/why not?: SCD's
[2017-04-17] MEDS ORDERED: MTR600X PO (06:38)
[2017-04-17] MEDS ORDERED: OXYC-57 PO (06:38)
[2017-04-17] MEDS ORDERED: DOCU-94 PO (06:48)
[2017-04-17] MEDS ORDERED: FERR1TAB13 PO (06:48)
[2017-04-17] MEDS: PRENATAL VITAMIN TAB PO SCH (07:21)
[2017-04-17] MEDS: DOCUSATE SODIUM 100 MG CAP PO SCH (07:21)
[2017-04-17] MEDS: SIMETHICONE 80 MG CHEW PO SCH (07:21)
[2017-04-17 07:25] VITALS: BP 122/82; PULSE 75; TEMP 36.4; O2SAT 98
[2017-04-17 07:45] VITALS: O2SAT 98
[2017-04-17 11:14] VITALS: BP_DIAS 82; PULSE 75; TEMP 36.4
--- NOTE | 2017-04-19 15:21 | DISCHARGE SUMMARY ---
HISTORY OF PRESENT ILLNESS: Dorita had a section on 04/14/2017. She was discharged home on April 17. At that time, she was ambulating well, tolerating an oral diet, passing flatus, had minimal bleeding and had no extremity pain. OBJECTIVE: GENERAL: Well-appearing. CHEST: Clear. CARDIOVASCULAR: Normal rate and rhythm. No audible gallop. ABDOMEN: Benign. Fundus nontender. Incision clean, dry and intact. EXTREMITIES: Nontender. IMPRESSION AND PLAN: Hemoglobin 8.3, discharged home on pain control including Motrin and Percocet and discussed iron supplementation. The patient told to follow up in the office. Call with any other concerns.
== END 2017-04-17 14:30 | disposition home or self-care (01) | DRG 766 ==
LOC: C.LD 13:59 → C.OPB 13:59 → C.LD 14:36 → C.OBG 04-14 15:43
PROVIDERS: ADMIT Obstetrics & Gynecology; ATTEND Obstetrics & Gynecology
PROC: 10D00Z1 Extraction of Products of Conception, Low, Open Approach (ICD-10-PCS; principal; 2017-04-13)
DX: O76 Abnormality in fetal heart rate and rhythm complicating labor and delivery (principal); Z37.0 Single live birth; O63.1 Prolonged second stage (of labor); O66.40 Failed trial of labor, unspecified; O75.81 Maternal exhaustion complicating labor and delivery; Z3A.40 40 weeks gestation of pregnancy

== ENCOUNTER → 2017-05-30 | Outpatient (CLI) | payer OTHER ==
[~2017-05-30] MED LIST changes: +DOCU-94 PO; +FERR1TAB13 PO; +MTR600X PO; +OXYC-57 PO
== END | disposition home or self-care (01) ==
LOC: C.PAPS 12:04
PROVIDERS: ATTEND Obstetrics & Gynecology
DX: Z87.410 Personal history of cervical dysplasia (principal)

== ENCOUNTER → 2017-07-25 | Outpatient (CLI) | payer OTHER | END | disposition home or self-care (01) | LOC: C.LABSPEC 15:46 | PROVIDERS: ATTEND Physician Assistant | DX: Z30.430 Encounter for insertion of intrauterine contraceptive device (principal) ==